=== PATIENT | male | born 1970 | race African-American/Black ===

== ENCOUNTER 2020-09-11 06:30 | Day surgery (SDC) | payer OTHER ==
[~2020-09-11] VITALS: Ht 180.3 cm; Wt 96.2 kg
[~2020-09-11 06:30] MED LIST: ATOR10 PO; CETI10CA5 PO; MV-M1TAB20 PO; OMEG1CAP2 PO
[2020-09-11] MEDS ORDERED: SODIUM CHLORIDE 0.9% 1000ML 1,000 ML IV ONE (06:45)
[2020-09-11 07:05] VITALS: BP 118/63
[2020-09-11] MEDS ORDERED: PROPOFOL 10 MG/ML 20ML VIAL IV ONE (07:54)
[2020-09-11] MEDS ORDERED: EPHEDRINE SULFATE 50 MG/ML AMPULE ONE (08:19)
[2020-09-11 08:25] VITALS: BP 110/69
[2020-09-11 08:30] VITALS: BP 115/67
[2020-09-11 08:35] VITALS: BP 112/69
[2020-09-11 08:40] VITALS: BP 101/71
[2020-09-11 08:45] VITALS: BP 106/68
== END 2020-09-11 08:55 | disposition home or self-care (01) ==
LOC: DAH 06:30 → ENDO 06:30
PROVIDERS: ATTEND Internal Medicine Gastroenterology
DX: Z12.11 Encounter for screening for malignant neoplasm of colon (principal); Z20.828 Contact with and (suspected) exposure to other viral communicable diseases; K56.2 Volvulus; K21.9 Gastro-esophageal reflux disease without esophagitis; E78.5 Hyperlipidemia, unspecified; R12 Heartburn; K63.89 Other specified diseases of intestine; Z72.89 Other problems related to lifestyle; Z79.899 Other long term (current) drug therapy
CPT/HCPCS: 45378; 87426; A4215; A4221; A4222; A4223; A4606; A4620; A4663; J2704; J3490; J7030; G0105